=== PATIENT | male | born 1945 | race Caucasian/White ===

== ENCOUNTER 2023-10-13 14:07 | Emergency (ER) | payer MEDICARE, SELFPAY ==
[2023-10-13] VITALS (7 sets, daily range): BP systolic 129–149; BP diastolic 74–98; PULSE 84–87
--- NOTE | 2023-10-13 14:43 | ED.GENMED ---
History of Present Illness
General
Chief Complaint: Heart Rate Problem
Source: patient
Time Seen by Provider: 10/13/23 14:30
Travel History
Have you had any contact with someone who has COVID-19?: No
Do you have any symptoms of coronavirus? Fever > 100 degrees, chills, cough, shortness of breath, sore throat, loss of taste or smell, muscle aches, or headache?: No
History of Present Illness
History of Present Illness:
77-year-old male with past medical history of atrial fibrillation, hyperlipidemia, diabetes, previous prostate cancer presenting to the emergency department for evaluation of potation's and feeling as if his heartbeat has been irregular over the
last 3 days, today developed a gradual dizziness that patient described to be somewhat like vertigo however does admit to some lightheadedness associated with this. Patient states while the vertigo has seemed to improved he still feels a little bit
lightheaded. Patient notes that he has been dealing with a sinus infection and completed 2 courses of antibiotics 4 days ago, this past Friday had recently gotten off a 10-day cruise noting he was in the [place] during this time. Patient states
that upon returning home he did feel that he exerted himself a decent amount unpacking and while unpacking had to sit down twice due to some fatigue. Currently denying any fevers, cough, headache, visual changes, focal weakness or numbness or any
other concerns.
Past History
Past History
ED Past Medical History: Arrthythmia, Hypercholesterolemia, NIDDM and Other (Atrial fibrillation, hypertension, skin cancer, hyperlipidemia)
ED Past Surgical History: Cardiac (Cardiac ablation for A-fib) and Urological
Social History
Tobacco: Non-smoker
Alcohol: Former (Sober for 30 years)
Drug: None
Personal:
Living: with family
Review of Systems
Review of Systems
All Other Systems: ROS reviewed and negative except as documented in HPI and ROS
Phy Exam
Physical Exam
Physical Exam:
GENERAL: Alert , in no apparent distress, Smiling and pleasant
EYE: pupils equal and reactive , EOMI, no nystagmus, no gross visual disturbances or visual field cuts
NECK: Supple
ENT: o/p clr, mmm.TMs clear bilateral
CARDIAC: Regular rate and rhythm, Faint systolic murmur at the left second intercostal space .
LUNGS: Clear breath sounds bilaterally, no acute respiratory distress, no wheezes/rales/rhonchi
ABDOMEN: Soft, without focal tenderness, no r/g, no cvat
NEUROLOGICAL: Alert and oriented, no focal neuro deficits, Moves all extremities, no dysmetria, no ataxia, no sensory deficits, strength 5 out of 5 upper and lower extremities bilateral
SKIN: Warm and dry, skin intact.
MUSCULOSKELETAL: No edema, well perfused.
PSYCH: Normal and appropriate interaction.
Scores
Heart Failure Risk
Heart Failure Risk Score: Not Applicable
Heart Score for Chest Pain Patients
STEMI patient?: Not applicable
Withdrawal Assessment of Alcohol
Withdrawal Assessment Completed?: Not applicable
Course
Orders/Labs/Results
Orders:
Orders
10/13/23 14:19
Electrocardiogram (*1) Urgent
Reason for Study: Palpitations
EKG- Treatment ONCE
10/13/23 14:35
CMP [Comprehensive Metabolic Panel] Urgent
Complete Blood Count/With Diff Urgent
10/13/23 14:41
Orthostatic VS- Treatment ONCE
Meclizine [Antivert] 25 mg PO NOW STA
10/13/23 15:16
COVID-19 Antigen Urgent
Source: Nasal Swab
Abnormal Lab Results
10/13/23
14:35
Absolute Neuts (auto) 7.0 H 10^3/uL
(1.4-6.5)
Absolute Monos (auto) 0.9 H 10^3/uL
(0.1-0.6)
Sodium 134 L mmol/L
(135-145)
Glucose 155 H mg/dl
(70-99)
10/13/23 14:35
10/13/23 14:35
Vital Signs
Initial and Last Documented VS:
Initial Vital Signs
Temp Pulse Resp BP Pulse Ox
98.3 F 92 18 148/85 97
10/13/23 14:15 10/13/23 14:15 10/13/23 14:15 10/13/23 14:15 10/13/23 14:15
Last Documented Vital Signs
Temp Pulse Resp BP Pulse Ox
98.3 F 82 31 145/81 98
10/13/23 14:15 10/13/23 17:04 10/13/23 17:04 10/13/23 17:04 10/13/23 17:08
MDM/Problems Addressed
Differential Diagnosis Includes:
Cardiac dysrhythmia, electrolyte disturbance, vertigo secondary to recent sinus infection, vertigo secondary to recent cruise, infectious etiology
MDM/Problems Addressed:
77-year-old male present emergency department feeling as if his heartbeat were irregular over the last 3 days, today described a dizziness/lightheadedness since turned and wanted to come to the ER for this to recently completing a course of
antibiotics for sinus infection a few days ago. Is also in the [place] on a cruise for 10 days which could have potentially triggered this episode. No focal neurologic findings during my exam. Reassessment following. Will treat with a dose of
Antivert and reassess.
Chronic conditions affecting care: Arrhythmia
*Pulse Oximetry
Patient hypoxic: no
*EKG
Interpreted by ED Provider?: Yes
Comparison EKG: no changes
Heart Rate: 87
Rate: normal
Rhythm: sinus
[place]: normal axis
QRS Pattern: left bundle branch block
Ischemia: no ischemia
*Sample Processor Interpretation
Rate: normal
Rhythm: sinus, PAC's and PVC's
*Critical Care Note
Total Time (30-74mins, 75-104mins- exclusive of procedures): Not Applicable
Data Reviewed
Review of Other/Old Records Reveals: Records
Source: patient
Patient Management
Escalation/DeEscalation of care consider admission/obs:
Patient was able to ambulate multiple times with a steady gait. He does note some improvement following the Antivert. CVA as a possibility given patient's history of A-fib and that he is only on aspirin 325 mg daily however he is not showing any
acute neurologic symptoms at time of my exam. I suspect patient's symptoms are all related to recently being on a cruise as well as a recent sinus infection. I do think it is reasonable for continued outpatient management and follow-up. Patient
is aware of return precautions.
ED Attending Note
-
Portions of this chart may have been created with voice recognition software.� Occasional wrong word or��sound alike� substitutions may have occurred due to the inherent limitations of voice recognition software.
Discharge Plan
Departure
Patient Disposition: Home (Routine Discharge)
Date of Disposition: 10/13/23
Time of Disposition: 17:02
Patient with high blood pressure during this ER visit?: Yes
Discharge Problem:
Palpitations, Dizziness
Instructions: Palpitations (DC)
Prescriptions:
No Action
aspirin 325 MG tablet,delayed release (DR/EC)
325 mg PO DAILY Qty: 0 0RF
glipizide 10 mg Tablet Extended Release 24hr
10 mg PO DAILY
lisinopril 20 mg Tablet
20 mg PO DAILY
simvastatin [Zocor] 20 mg Tablet
20 mg PO HS
metformin 1,000 mg Tablet
1,000 mg PO BID
Visbiome 112.5 billion cell Capsule
1 cap PO DAILY
Trulicity 1.5 mg/0.5 mL Pen Injector
1.5 mg SC HACKETT@0800
atenolol 25 MG tablet
25 mg PO BID
Referrals:
Porrino,Gaston., DO [Family Provider] -
Interventions
Interventions:
*Risk Screen - Suicide Last Done: 10/13/23 14:29
*General Assessment Last Done: 10/13/23 14:15
*Neglect/Abuse Screening Last Done: 10/13/23 14:29
ED- Fall Risk Assessment Last Done: 10/13/23 17:08
*ED COVID-19 Vaccine History Last Done: 10/13/23 14:15
*Nursing Disposition Last Done: 10/13/23 17:08
ED- Cardiac Assessment Last Done: 10/13/23 14:46
ED- Pulmonary Assessment Last Done: 10/13/23 14:47
Discharge Date and Time
Discharge Date/Time: 10/13/23 17:09
[2023-10-13 14:58] LABS: % Basophils 0.8 % (0-2); % Eosinophils 1.7 % (0-6); % Immature Granulocytes 0.3 % (0-0.5); % Lymphocytes 20.7 % (20.5-51.1); % Monocytes 8.9 % (1.7-9.3); % Neutrophils 67.6 % (42.2-75.2); Absolute Basophils 0.1 10^3/uL (0-0.2); Absolute Eosinophils 0.2 10^3/uL (0-0.7); Absolute Lymphocytes 2.1 10^3/uL (1.2-3.4); Absolute Monocytes 0.9 10^3/uL (0.1-0.6); Hematocrit 40.7 % (39.0-52.0); Mean Corp Hgb Conc. 34.4 g/dL (33.0-37.0); Mean Corpuscular Hgb 29.3 pg (27.0-31.0); Mean Corpuscular Volume 85.1 fL (80.0-94.0); Mean Platelet Volume 9.2 fL (7.4-10.4); Nucleated Red Blood Cells % 0 % (-); Platelet Count 261 10^3/uL (130-400); Red Blood Cell Count 4.78 10^6/uL (4.70-6.10); White Blood Cell Count 10.3 10^3/uL (4.8-10.8)
[2023-10-13] MEDS: ANTIVERT 25 MG PO (15:03)
[2023-10-13 15:07] LABS: ALT (SGPT) 19 U/L (0-50); AST (SGOT) 23 U/L (17-59); Albumin 3.9 g/dl (3.5-5.0); Alkaline Phosphatase 80 U/L (38-126); Blood Urea Nitrogen 16 mg/dl (9-20); Calcium 8.8 mg/dl (8.4-10.2); Carbon Dioxide 25 mmol/L (22-30); Chloride 101 mmol/L (98-107); Glucose 155 mg/dl (70-99); Potassium 3.9 mmol/L (3.5-5.1); Sodium 134 mmol/L (135-145); Total Bilirubin 0.4 mg/dl (0.2-1.3); Total Protein 6.6 g/dl (6.3-8.2); eGFR > 60.00
[2023-10-13 15:42] LABS: COVID-19 Antigen Negative (Negative)
== END 2023-10-13 17:09 | disposition home or self-care (01) ==
LOC: EMR 14:07
PROVIDERS: Emergency Medicine; Physician Assistant Medical; EMERGENCY PHYSICIAN Emergency Medicine; FAMILY PHYSICIAN Family Medicine
DX: R00.2 Palpitations (principal); R42 Dizziness and giddiness; I49.9 Cardiac arrhythmia, unspecified; R53.83 Other fatigue; Z11.52 Encounter for screening for COVID-19
CPT/HCPCS: 99284; 80053; 85025; 87811; 93005

== ENCOUNTER 2024-04-28 15:36 | Emergency (ER) | payer MEDICARE, SELFPAY ==
[2024-04-28 15:47] VITALS: BP 134/78
[2024-04-28 16:28] VITALS: BMI 28.3
--- NOTE | 2024-04-28 16:41 | ED.GENMED ---
History of Present Illness
General
Chief Complaint: Bowel Problem
Source: patient and records (Colonoscopy report from 2020)
Exam Limitations: none
Time Seen by Provider: 04/28/24 16:23
Nursing documentation reviewed up to this point in time: agreed with
History of Present Illness
History of Present Illness:
78-year-old male presents with constipation has not had a normal bowel movement for about 8 days until today been using numerous laxatives and enemas for admit the patient he had just had a large bowel movement of solid and liquid stool on the
floor, states he is feeling better no abdominal pain no vomiting no apparent blood in the stool, no narcotic use, although he did start Trulicity he states he believes that is giving him constipation
Past History
Past History
ED Past Medical History: Arrthythmia, Hypercholesterolemia, NIDDM and Other (Atrial fibrillation, hypertension, skin cancer, hyperlipidemia)
ED Past Surgical History: Cardiac (Cardiac ablation for A-fib) and Urological
Social History
Tobacco: Non-smoker
Alcohol: Former (Sober for 30 years)
Drug: None
Personal:
Living: with family
Review of Systems
Review of Systems
All Other Systems: Not applicable
Constitutional: Denies fever
ABD/GI: Reports constipated; Denies abdominal pain
: Reports no symptoms
Musculoskeletal: Reports no symptoms
Skin: Reports no symptoms
Neurological: Reports no symptoms
Phy Exam
Physical Exam
Physical Exam:
Physical Exam
General: no apparent distress, not acutely ill
Neck: No jaundice
Heart: Regular
Lungs: no acute respiratory distress.
Abdomen: Soft nontender
Neuro: alert and oriented. no focal neurological deficits
Skin: no rash
Psychiatric: well kept. interactive and cooperative
Extremities: no edema.
Course
Vital Signs
Initial and Last Documented VS:
Initial Vital Signs
Temp Pulse BP Pulse Ox
98.1 F 63 134/78 98
04/28/24 15:47 04/28/24 15:47 04/28/24 15:47 04/28/24 15:47
Last Documented Vital Signs
Temp Pulse Resp BP Pulse Ox
98.1 F 63 18 105/62 98
04/28/24 15:47 04/28/24 15:47 04/28/24 17:44 04/28/24 17:44 04/28/24 15:47
MDM/Problems Addressed
Differential Diagnosis Includes:
Patient with a large bowel movement here after an episode of constipation C-scope from 2020 noted polyp with diverticulosis
Med effect, functional, dehydration, malignancy
MDM/Problems Addressed:
Constipation
*Pulse Oximetry
Patient hypoxic: no
*Critical Care Note
Total Time (30-74mins, 75-104mins- exclusive of procedures): Not Applicable
Update Note
Update Note:
Update patient no longer constipated may benefit from some gentle laxative
Update patient believes it is from his Trulicity
He is feeling much better after a bowel movement
ED Attending Note
-
Portions of this chart may have been created with voice recognition software.� Occasional wrong word or��sound alike� substitutions may have occurred due to the inherent limitations of voice recognition software.
Discharge Plan
Departure
Patient Disposition: Home (Routine Discharge)
Date of Disposition: 04/28/24
Time of Disposition: 17:28
Patient with high blood pressure during this ER visit?: No
Condition: Good
Covid-19: Not Applicable
Discharge Problem:
Constipation
Instructions: Constipation, Adult (DC)
Prescriptions:
New
polyethylene glycol 3350 [Miralax] 17 gram/dose powder
4 g PO DAILY PRN (Reason: Constipation) Qty: 238 0RF
lactulose 20 gram/30 mL solution
20 g PO BID PRN (Reason: Constipation) Qty: 1200 0RF
No Action
aspirin 325 MG tablet,delayed release (DR/EC)
325 mg PO DAILY Qty: 0 0RF
glipizide 10 mg Tablet Extended Release 24hr
10 mg PO DAILY
lisinopril 20 mg Tablet
20 mg PO DAILY
simvastatin [Zocor] 20 mg Tablet
20 mg PO HS
metformin 1,000 mg Tablet
1,000 mg PO BID
Visbiome 112.5 billion cell Capsule
1 cap PO DAILY
Trulicity 1.5 mg/0.5 mL Pen Injector
1.5 mg SC HACKETT@0800
atenolol 25 MG tablet
25 mg PO BID
Referrals:
Joel Sandoval MD [Active] - Next open appointment
Activity Restrictions/Additional Instructions:
Drink plenty of fluids take MiraLAX daily until your stools are soft
Follow-up with your primary care provider and gastroenterology Dr. Sandoval or his associates
Interventions
Interventions:
*Risk Screen - Suicide Last Done: 04/28/24 15:48
*General Assessment Last Done: 04/28/24 16:28
*Neglect/Abuse Screening Last Done: 04/28/24 15:48
ED- Fall Risk Assessment Last Done: 04/28/24 16:28
*ED COVID-19 Vaccine History Last Done: 04/28/24 17:46
*Nursing Disposition Last Done: 04/28/24 17:46
KT-Tvwvbk-Qcnqovgcfq Assessment Last Done: 04/28/24 16:28
Discharge Date and Time
Discharge Date/Time: 04/28/24 17:46
Print Language: NICARAGU[place]
[2024-04-28 17:44] VITALS: BP 105/62
== END 2024-04-28 17:46 | disposition home or self-care (01) ==
LOC: EMR 15:36
PROVIDERS: EMERGENCY PHYSICIAN Emergency Medicine; FAMILY PHYSICIAN Family Medicine
DX: K59.00 Constipation, unspecified (principal); E78.00 Pure hypercholesterolemia, unspecified; E11.9 Type 2 diabetes mellitus without complications; I10 Essential (primary) hypertension; I48.91 Unspecified atrial fibrillation; Z85.828 Personal history of other malignant neoplasm of skin
CPT/HCPCS: 99282

== ENCOUNTER 2024-04-30 11:33 | Inpatient (IN) | payer MEDICARE, SELFPAY ==
[2024-04-30] VITALS (13 sets, daily range): BP systolic 119–160; BP diastolic 69–101; BMI 28.8; BMI 28.0
[2024-04-30 04:48] LABS: % Basophils 0.4 % (0-2); % Eosinophils 0.1 % (0-6); % Immature Granulocytes 0.3 % (0-0.5); % Monocytes 10.4 % (1.7-9.3); % Neutrophils 81.8 % (42.2-75.2); Absolute Basophils 0.1 10^3/uL (0-0.2); Absolute Monocytes 1.5 10^3/uL (0.1-0.6); Hematocrit 41.6 % (39.0-52.0); Hemoglobin 14.6 g/dL (13.0-18.0); Mean Corp Hgb Conc. 35.1 g/dL (33.0-37.0); Mean Corpuscular Hgb 29.5 pg (27.0-31.0); Nucleated Red Blood Cells % 0 % (-); Platelet Count 252 10^3/uL (130-400); Red Blood Cell Count 4.95 10^6/uL (4.70-6.10); Red Cell Dist. Width 12.9 % (11.5-14.5); White Blood Cell Count 14.7 10^3/uL (4.8-10.8)
[2024-04-30 05:01] LABS: Lactic Acid 2.1 mmol/L (0.7-2.0)
[2024-04-30 05:02] LABS: ALT (SGPT) 20 U/L (0-50); AST (SGOT) 27 U/L (17-59); Albumin 3.7 g/dl (3.5-5.0); Alkaline Phosphatase 92 U/L (38-126); Blood Urea Nitrogen 22 mg/dl (9-20); Calcium 8.7 mg/dl (8.4-10.2); Carbon Dioxide 17 mmol/L (22-30); Chloride 97 mmol/L (98-107); Estimated Creatinine Clearance 48 ml/min; Glucose 281 mg/dl (70-99); Lipase 97 U/L (23-300); Potassium 4.4 mmol/L (3.5-5.1); Sodium 131 mmol/L (135-145); Total Bilirubin 1.2 mg/dl (0.2-1.3); Total Protein 6.4 g/dl (6.3-8.2); eGFR 50.81
[2024-04-30] MEDS: NSS 1000 IV ×3 (05:05→21:47)
--- NOTE | 2024-04-30 06:29 | ED.GENMED ---
History of Present Illness
General
Chief Complaint: Abdominal Pain
Source: patient
Exam Limitations: none
Time Seen by Provider: 04/30/24 06:24
History of Present Illness
History of Present Illness:
See MDM
Past History
Past History
ED Past Medical History: Arrthythmia, Hypercholesterolemia, NIDDM and Other (Atrial fibrillation, hypertension, skin cancer, hyperlipidemia)
ED Past Surgical History: Cardiac (Cardiac ablation for A-fib) and Urological
Social History
Tobacco: Non-smoker
Alcohol: Former (Sober for 30 years)
Drug: None
Personal:
Living: with family
Phy Exam
Physical Exam
Physical Exam:
See MDM
Course
Orders/Labs/Results
Orders:
Orders
04/30/24 04:25
Electrocardiogram (*1) Urgent
Reason for Study: Abdominal Pain
EKG- Treatment ONCE
IV Insert/Care/Rem.- Treatment PRN
04/30/24 04:34
Complete Blood Count/With Diff Urgent
Comprehensive Metabolic Panel Urgent
Lactate Level [Lactic Acid] Urgent
Lipase Urgent
04/30/24 05:03
0.9% Sodium Chloride 1000 ml [Nss] 1,000 ml IV BOLUS
04/30/24 05:39
CT Abd/Pel (IV only)-DH only Urgent
Comment:
Reason For Exam: LLQ abd. pain.
04/30/24 07:41
Zosyn 3.375 grams IVPB NOW Piperacillin/Tazo 3.375 Gram [Zosyn] 3.375 gram in 50 ml IV NOW
Abnormal Lab Results
04/30/24
04:34
WBC 14.7 H 10^3/uL
(4.8-10.8)
Absolute Neuts (auto) 12.0 H 10^3/uL
(1.4-6.5)
Absolute Lymphs (auto) 1.0 L 10^3/uL
(1.2-3.4)
Absolute Monos (auto) 1.5 H 10^3/uL
(0.1-0.6)
Neutrophils % 81.8 H %
(42.2-75.2)
Lymphocytes % 7.0 L %
(20.5-51.1)
Monocytes % 10.4 H %
(1.7-9.3)
Sodium 131 L mmol/L
(135-145)
Chloride 97 L mmol/L
(98-107)
Carbon Dioxide 17 L mmol/L
(22-30)
BUN 22 H mg/dl
(9-20)
Creatinine 1.4 H mg/dL
(0.7-1.3)
Glucose 281 H mg/dl
(70-99)
Lactic Acid 2.1 H mmol/L
(0.7-2.0)
04/30/24 04:34
04/30/24 04:34
Vital Signs
Initial and Last Documented VS:
Initial Vital Signs
Temp Pulse Resp BP Pulse Ox
98.4 F 103 19 141/81 96
04/30/24 04:08 04/30/24 04:08 04/30/24 04:08 04/30/24 04:08 04/30/24 04:08
Last Documented Vital Signs
Temp Pulse Resp BP Pulse Ox
98.4 F 108 27 140/72 95
04/30/24 04:08 04/30/24 06:00 04/30/24 06:00 04/30/24 06:07 04/30/24 05:05
MDM/Problems Addressed
Differential Diagnosis Includes:
HPI and MDM Narrative:
78-year-old male presenting with recurrent abdominal pain. He complains of left lower quadrant pain and constipation. He was seen a few days ago in the emergency department with similar symptoms. However, at that emergency visit, he had a large
bowel movement and was discharged. Patient believes it could be related to his Trulicity so he is stopped his Trulicity. He has stopped his metformin. He used to be on lactulose for constipation but he has not taken that either.
Prior to my evaluation, blood work and CT were performed. Patient appears comfortable and nontoxic. Patient found to have an elevated glucose and lactic acid. He is afebrile. Patient started on IV fluids
Physical exam
General: Well appearing and non-toxic
HEENT: protecting airway. Mildly dry mucous membranes
Neck: appears supple
CV: No evidence of cyanosis
Resp: No accessory muscle use
Abd: Non-distended. Mild tenderness left lower quadrant without rebound
Extremities: No deformities
Neuro: alert
Psych: Normal affect
Skin: Intact
Problems Addressed including Acute and Chronic Conditions affecting care:
1. Abdominal pain
Acuity: acute
Prognosis: stable
Details: Given persistent symptoms despite large bowel movement a few days ago, CT abdomen/pelvis was performed prior to my evaluation
2. Dehydration
Acuity: acute
Prognosis: stable
Details: Patient started on IV fluids
3. Hyperglycemia
Acuity: acute
Prognosis: stable
Details: No evidence of DKA. Likely in setting of medication noncompliance
Updates
Patient found to have left proximal ureteral stone in addition to colitis. The colitis is likely in the setting of the significant constant a few days ago. Given his symptoms, will give a dose of Zosyn and admit
Differential Diagnosis (but not limited to): Constipation, diverticulitis, colitis
Testing considered: blood culture
Drug therapy (if applicable): OTC meds, please see d/c instruction regarding Rx drugs
Amount and/or Complexity of Data Reviewed
Clinical info obtained from: Patient
External data reviewed: Recent evaluation for constipation. Symptoms self resolved
Labs I independently reviewed (but not limited to): Leukocytosis, elevated lactic acid, hyperglycemia
Radiology: The CT scan was personally and independently reviewed. In addition, official CT report reviewed.
Pulse Ox: not hypoxic
EKG independently reviewed: N/A
Electrical And Radio Mock Up Mechanic: N/A
Critical Care: N/A
Risk of Complication:
Social Determinants of health: Good social support
Discussed with other providers: Hospitalist
Escalation of Care includes Admit/Obs: Given the colitis and the kidney stone, will admit
Occasional wrong word or 'sound a like' substitutions may have occurred due to the inherent limitations of voice recognition software. Read the chart carefully and recognize, using context, where substitutions have occurred.
*Critical Care Note
Total Time (30-74mins, 75-104mins- exclusive of procedures): Not Applicable
ED Attending Note
-
Portions of this chart may have been created with voice recognition software.� Occasional wrong word or��sound alike� substitutions may have occurred due to the inherent limitations of voice recognition software.
Discharge Plan
Departure
Patient Disposition: Admit
Date of Disposition: 04/30/24
Time of Disposition: 07:45
Admit to: Med/Surg
Presentation/result/management discussed w/ accepting MD/DO: Hospitalist
Discharge Problem:
Colitis, Kidney stone on left side
Prescriptions:
No Action
aspirin 325 MG tablet,delayed release (DR/EC)
325 mg PO DAILY Qty: 0 0RF
glipizide 10 mg Tablet Extended Release 24hr
10 mg PO DAILY
lisinopril 20 mg Tablet
20 mg PO DAILY
simvastatin [Zocor] 20 mg Tablet
20 mg PO HS
atenolol 25 MG tablet
25 mg PO BID
polyethylene glycol 3350 [Miralax] 17 gram/dose powder
4 g PO DAILY PRN (Reason: Constipation) Qty: 238 0RF
Referrals:
Porrino,Gaston., DO [Family Provider] -
Interventions
Interventions:
*Risk Screen - Suicide Last Done: 04/30/24 04:08
*General Assessment Last Done: 04/30/24 04:08
*Neglect/Abuse Screening Last Done: 04/30/24 04:08
ED- Fall Risk Assessment Last Done: 04/30/24 04:43
*ED COVID-19 Vaccine History Last Done: 04/30/24 04:08
ZG-Tkujcd-Teudhxtjvn Assessment Last Done: 04/30/24 04:43
Discharge Date and Time
Print Language: [place]
[2024-04-30] MEDS: ZOSYN 50 IV (08:07)
[2024-04-30] MEDS: MORPHINE SULFATE 4 MG IV (08:52)
--- NOTE | 2024-04-30 10:33 | HPS.HSE ---
Addendum entered and electronically signed by Janice Magallon MD 04/30/24 12:38:
UA with 0 WBC, will stop antibiotics
Original Note:
Family Physician
-
Family Physician: Colton Caracmo
Chief Complaint
-
abdominal discomfort
History of Present Illness
Mr. Shelton Carrera is a 78 yo man with hx afib s/p ablation, HLD, NIDDM, recent ER visit 2 days ago for abdominal pain thought 2/2 constipation represents with continued pain.
Pain is left groin and radiates to back. He's been having BM. No fevers. No nausea/vomiting. No chest pain or shortness of breath. No rash. No dysuria.
Medical History
Past Medical History
Past Medical History: Reports Other (afib s/p ablation, HLD, NIDDM)
Past Surgical History: Reports Cardiac (ablation)
Social History
Tobacco: Non-smoker
Alcohol: Former
Family History
Family History: Not pertinent
Allergies / Home Medications
Allergies reflects when Allergies were last updated in [facility].
Home Medications with original date entered in [facility]
Allergy/Medication List:
Allergies
Allergy/AdvReac Type Severity Reaction Status Date / Time
scallops Allergy Unknown Uncoded 04/30/24 04:08
Home Medications
glipizide 10 mg tablet, extended release 24 hr 10 mg PO DAILY diabetes 03/21/22
lisinopril 20 mg tablet 20 mg PO DAILY blood pressure 03/21/22
simvastatin 20 mg tablet (Zocor) 20 mg PO HS hyperlipidemia 03/21/22
atenolol 25 mg tablet 25 mg PO BID Blood Pressure 10/13/23
aspirin 325 mg tablet,delayed release 325 mg PO DAILY Blood Clot Prevention/Tx 04/30/24
polyethylene glycol 3350 17 gram/dose oral powder (Miralax) 17 g PO DAILYPRN PRN constipation 04/30/24
sennosides 8.6 mg-docusate sodium 50 mg tablet (Senna Plus) 3 tab-cap PO HS constipation 04/30/24
Review of Systems
-
History Source: Patient
A 12 point ROS was completed and negative except as noted: Yes
Physical Exam
Vital Signs
Vital Signs
Temp Pulse Resp BP Pulse Ox
98.4 F 96 26 132/74 92
04/30/24 04:08 04/30/24 10:00 04/30/24 10:00 04/30/24 10:00 04/30/24 10:00
Physical Exam
General: No Apparent Distress
HEENT: PERRLA
Respiratory: Clear; No Wheezes
Cardiac: S1/S2 and Regular Rhythm
GI: Soft and Other (mild tenderness left groin )
Musculoskeletal: No Edema
Skin: Warm and Dry; No Rash
Neuro: AO x 3
Psych: Calm
Laboratory Results
-
04/30/24 04:34
04/30/24 04:34
Laboratory Results
Lactic Acid 2.1 mmol/L (0.7-2.0) H 04/30/24 04:34
Total Bilirubin 1.2 mg/dl (0.2-1.3) 04/30/24 04:34
AST 27 U/L (17-59) 04/30/24 04:34
ALT 20 U/L (0-50) 04/30/24 04:34
Alkaline Phosphatase 92 U/L (38-126) 04/30/24 04:34
Lipase 97 U/L (23-300) 04/30/24 04:34
Data Reviewed
-
Diagnostic Radiology: Report Reviewed by me
Lab Data: Labs Reviewed by me
Impression/Plan
-
Mr. Shelton Carrera is a 78 yo man with hx afib s/p ablation, HLD, NIDDM, recent ER visit 2 days ago for abdominal pain thought 2/2 constipation represents with continued pain found to have left nephrolithiasis with mild hydro.
Triage VS: T 98.4, P 103, RR 19, BP 141/81, SpO2 96%
LABS: WBC 14.7, Hg 14.6, PLT 252, Na 131, K+ 4.4, BUN 22, Cr 1.4, lactate 2.1, liver enzymes WNL
CT A/P
IMPRESSION:
1. 8 mm stone at the left ureteral pelvic junction, associated with mild right hydronephrosis. There is delayed cortical function of the left kidney relative to the right. Additional intrarenal stone on the left side, nonobstructing.
2. Colonic diverticulosis without evidence of diverticulitis.
Kidneys/Ureters: Perinephric stranding is seen surrounding the left kidney. There is delayed cortical enhancement of the left kidney, indicative of delayed left renal function.
There is mild hydronephrosis left kidney. A stone is seen at the left ureteral pelvic junction, measuring 8 mm in diameter.
Left ureteral stone with mild hydronephrosis
RAMON
-admit to med/surg
-Urology consulted
-NPO for now
-IVF
-continue IV Zosyn for now, awaiting UA
-hold ASSOCIATE PROFESSOR OF ART HISTORY Lisinopril
HTN
-decrease atenolol to daily with RAMON
-hold Lisinopril
Elevated lactate in setting of possible UTI, renal stone
-patient not septic
-s/p 1L bolus, continue to trend
-IVF
HLD
-ASSOCIATE PROFESSOR OF ART HISTORY Statin
NIDDM
-hold ASSOCIATE PROFESSOR OF ART HISTORY Glipziide
-ISS low
DVT PPx SCD
DNR - discussed on admission
76 minutes spent on patient care
[2024-04-30 11:28] LABS: Urine Albumin Trace (Neg - Trace); Urine Bilirubin Negative (Negative); Urine Character Clear (Clear); Urine Color Yellow; Urine Glucose 3+ (Negative); Urine Ketone 2+ (Negative); Urine Leukocyte Negative (Negative); Urine Nitrite Negative (Negative); Urine Occult Blood 2+ (Negative); Urine Urobilinogen Negative (Neg - 1+)
[2024-04-30 11:52] LABS: Urine Bacteria Few (Negative); Urine Squamous Cell 0-2 /LPF (Few); Urine White Cell 0-2 /HPF (0-5)
[2024-04-30] MEDS: FLOMAX 0.4 MG PO (12:00)
[2024-04-30 12:53] LABS: Glycohemoglobin (HgbA1c) 8.2 % (4.0-5.6)
[2024-04-30] MEDS: NOVOLOG FLEXPEN-LOW RESISTANCE SC (13:31)
--- NOTE | 2024-04-30 13:51 | PTCARENOTE ---
Received pt from ER via stretcher, accompanied by ER staff. Pt AAO x3, ASHLEY well, ambulatory to bed, no c/o weakness/dizziness. VSS. On room air- pulse ox 99%, no SOB noted. Abd soft, rounded, to start reg diet. Pt voided in BR upon arrival to
unit; aware of need to monitor output/strain urine. Afebrile; W/D/I. IVF's NSS @ 125 ml/hr infusing via Lt AC site without sx of infiltration. Currently resting in bed. Will continue to monitor.
[2024-04-30 14:25] LABS: Lactic Acid 1.5 mmol/L (0.7-2.0)
[2024-04-30] MEDS: TENORMIN 25 MG PO (16:04)
[2024-04-30] MEDS: TYLENOL 650 MG PO (16:08)
--- NOTE | 2024-04-30 16:09 | PTCARENOTE ---
Pt resting comfortably since arrival on unit. Temp currently 100.7 PO; Tylenol 650 mg PO given; will continue to monitor.
[2024-04-30 18:10] LABS: Glucose - Point of Care 311 mg/dl (70-99)
[2024-04-30] MEDS: NOVOLOG FLEXPEN-LOW RESISTANCE 4 UNITS SC (18:13)
[2024-04-30] MEDS: LIPITOR 10 MG PO (21:11)
--- NOTE | 2024-04-30 21:49 | PTCARENOTE ---
Pt has been bradycardic w/ 1st degree block as low in the 30's. Pt is asymptomatic. PATTERNMAKER PLASTER certifed refrigeration operator made aware. Will continue w/ tx plan
[2024-05-01 00:11] LABS: Glucose - Point of Care 222 mg/dl (70-99)
[2024-05-01] MEDS: NOVOLOG FLEXPEN-LOW RESISTANCE 2 UNITS SC (00:12)
[2024-05-01] MEDS: NSS 1000 IV ×2 (05:12→14:41)
[2024-05-01] MEDS: NOVOLOG FLEXPEN-LOW RESISTANCE 1 UNITS SC ×3 (05:16→16:31)
[2024-05-01 05:17] LABS: Glucose - Point of Care 193 mg/dl (70-99)
[2024-05-01 05:42] LABS: % Basophils 0.6 % (0-2); % Eosinophils 1.6 % (0-6); % Immature Granulocytes 0.3 % (0-0.5); % Lymphocytes 12.1 % (20.5-51.1); % Neutrophils 74.4 % (42.2-75.2); Absolute Basophils 0.1 10^3/uL (0-0.2); Absolute Eosinophils 0.2 10^3/uL (0-0.7); Absolute Lymphocytes 1.4 10^3/uL (1.2-3.4); Absolute Monocytes 1.3 10^3/uL (0.1-0.6); Absolute Neutrophils 8.8 10^3/uL (1.4-6.5); Hematocrit 37.6 % (39.0-52.0); Hemoglobin 12.9 g/dL (13.0-18.0); Mean Corp Hgb Conc. 34.3 g/dL (33.0-37.0); Mean Corpuscular Hgb 29.5 pg (27.0-31.0); Mean Platelet Volume 9.5 fL (7.4-10.4); Nucleated Red Blood Cells % 0 % (-); Platelet Count 222 10^3/uL (130-400); Red Blood Cell Count 4.37 10^6/uL (4.70-6.10); Red Cell Dist. Width 12.8 % (11.5-14.5); White Blood Cell Count 11.9 10^3/uL (4.8-10.8)
[2024-05-01 05:57] LABS: Blood Urea Nitrogen 22 mg/dl (9-20); Carbon Dioxide 21 mmol/L (22-30); Chloride 101 mmol/L (98-107); Estimated Creatinine Clearance 46 ml/min; Glucose 194 mg/dl (70-99); Magnesium 1.9 mg/dl (1.6-2.3); Potassium 4.1 mmol/L (3.5-5.1); Sodium 134 mmol/L (135-145); eGFR 46.77
[2024-05-01 07:55] VITALS: BP 149/86
[2024-05-01] MEDS: FLOMAX 0.4 MG PO (08:09)
[2024-05-01] MEDS: TENORMIN 25 MG PO ×2 (08:10→21:03)
[2024-05-01] MEDS: FLUSH (NSS) 1 FLUSH IV (08:17)
[2024-05-01] MEDS: DILAUDID 0.5 MG IV (08:17)
--- NOTE | 2024-05-01 10:32 | W.PN.URO.CBU ---
Today's Communication / Plan
-
Discussed case with Hospitalist
Home today after a KUB for a trial of stone passage
Advise tamsulosin and a cephalosporin
Assessment / Plan
-
Partially obstructing 8 mm left proximal ureteral stone
RAMON: creatinine 1.5 today (baseline around 1.2)
Bilateral renal cysts
Diagnosis
-
Date of Service: May 01, 2024
-
Patient Diagnosis:
Partially obstructing 8mm left proximal ureteral stone
Bilateral renal cysts
RAMON
Left renal colic
---
No voiding dysfunction
No gross hematuria
No fever or chills
No nausea or vomiting
No prior history of nephrolithiasis
Subjective
-
Patient is essentially pain-free at this time
He is voiding w/o difficulty
Hungry
Objective
-
Vital Signs
Temp Pulse Resp BP Pulse Ox
97.4 F 90 14 149/86 95
05/01/24 07:55 05/01/24 08:10 05/01/24 07:55 05/01/24 08:10 05/01/24 07:55
Intake and Output
04/30/24 05/01/24 05/02/24
06:59 06:59 06:59
Intake Total 2900 / 2900
Output Total 850 / 850
Balance 2049 / 2049
Intake:
Oral fluids 900 / 900
IV fluids (Total) 1999 / 1999
Output:
Urine, Voided 850 / 850
Other:
Number of approximated MODERATE 2
amounts of urine
Laboratory Results
05/01/24 05:16
05/01/24 05:16
Urinalysis yesterday is not suggestive of active UTI
CT scan results personally reviewed
Review of Systems
-
Constitutional: No Symptoms
Respiratory: No Symptoms
Cardiac: No Symptoms
Abdomen/GI: Abdominal Pain
: No Symptoms
Neurological: No Symptoms
Physical Exam
-
General - well developed, well nourished, no acute distress
Abdomen - soft, non-tender, mild left CVAT
Skin - warm & dry with no rash
Neuro - AOx3, no motor deficits
Counseling
-
Cleared for discharge from a standpoint
Will follow up as an outpatient
[2024-05-01 10:36] LABS: Glucose - Point of Care 194 mg/dl (70-99)
--- NOTE | 2024-05-01 11:08 | W.PN.HOSP.TC ---
Today's Communication/Plan
-
see plan
Assessment / Plan
Assessment / Plan
Mr. Shelton Carrera is a 78 yo man with hx afib s/p ablation, HLD, NIDDM, recent ER visit 2 days ago for abdominal pain thought 2/2 constipation represents with continued pain found to have left nephrolithiasis with mild hydro.
CT A/P
IMPRESSION:
1. 8 mm stone at the left ureteral pelvic junction, associated with mild right hydronephrosis. There is delayed cortical function of the left kidney relative to the right. Additional intrarenal stone on the left side, nonobstructing.
2. Colonic diverticulosis without evidence of diverticulitis.
Kidneys/Ureters: Perinephric stranding is seen surrounding the left kidney. There is delayed cortical enhancement of the left kidney, indicative of delayed left renal function.
There is mild hydronephrosis left kidney. A stone is seen at the left ureteral pelvic junction, measuring 8 mm in diameter.
Left ureteral stone with mild hydronephrosis
RAMON
-admit to med/surg
-Urology consult appreciated
-OK for DC from Urologic perspective with close follow up
-patient cannot obtain meds until tomorrow with [facility] - will keep another night
-oral Keflex per Urology recs
-NS @ 78
HTN
-decrease atenolol to daily with RAMON
-hold Lisinopril
Elevated lactate in setting of possible UTI, renal stone
-resolved
-patient not septic
HLD
-CREDIT CONTROL ADMINISTRATOR Statin
NIDDM
-resume lower dose Glipizide
-ISS low
DVT PPx SCD
DNR - discussed on admission
51 minutes spent on patient care
Anticipated Discharge: 24 - 48 hours
Subjective/Interval History
-
Date of Service: May 01, 2024
pain improved although received IV dilaudid this morning
Objective Data
-
Labs:
Laboratory Results
05/01/24
05:16
WBC 11.9 H
Hgb 12.9 L
Hct 37.6 L
Plt Count 222
Sodium 134 L
Potassium 4.1
Chloride 101
Carbon Dioxide 21 L
BUN 22 H
Creatinine 1.5 H
Glucose 194 H
Calcium 8.0 L
Vital Signs:
Vital Signs
Temp Pulse Resp BP Pulse Ox
97.4 F 90 14 149/86 96
05/01/24 07:55 05/01/24 08:10 05/01/24 07:55 05/01/24 08:10 05/01/24 10:00
I&O
04/30/24 05/01/24 05/02/24
06:59 06:59 06:59
Intake Total 2900 / 2900
Output Total 850 / 850
Balance 2049 / 2049
Review of Systems
-
History Source: Patient
All other systems: Reviewed and negative
Physical Exam
-
General: No Apparent Distress
HEENT: PERRLA
Respiratory: Clear to Auscultation; Negative Wheezes
Cardiac: Regular Rhythm and S1/S2
GI: Soft and Nontender
Musculoskeletal: No Edema
Skin: Warm and Dry; Negative Rash
Neuro: AO x 3
Psych: Calm
Data Reviewed
-
Diagnostic Radiology: Report Reviewed by me
Labs: Labs Reviewed by me
[2024-05-01] MEDS: MIRALAX 17 GRAMS PO (11:29)
[2024-05-01] MEDS: LOW STRENGTH ASPIRIN 81 MG PO (11:29)
[2024-05-01] MEDS: KEFLEX 500 MG PO ×2 (11:29→21:03)
[2024-05-01] MEDS: GLUCOTROL 2.5 MG PO (11:34)
[2024-05-01 11:46] LABS: Glucose - Point of Care 255 mg/dl (70-99)
--- NOTE | 2024-05-01 12:55 | PTOTSP ---
Chart reviewed. patient received in bed. PT introduced and explained roll. Patient notes that he has been walking to/from stretchers without issue or AD (EMR confirms that he and he has no stairs at home (all elevator access). At this time,
patient notes that he doesn't have any concerns about going home and other than constipation and pain from the stone. Encouraged patient to continue to mobilize as much as he can to maintain a normal routine. If condition changes, explained to
patient to let staff know to have PT reconsulted. Will sign off per patient request.
--- NOTE | 2024-05-01 14:31 | CM ---
Met with patient who reports he lives alone in apartment. He uses cane and has shower rails. His dgtr lives in [place].
PCP Dr. Carcamo
PHarmacy: [facility].
He hopes to go home soon and does not expect to need any home care services.
PLAN:home no needs
[2024-05-01 15:50] VITALS: BP 100/53
[2024-05-01 16:28] LABS: Glucose - Point of Care 152 mg/dl (70-99)
[2024-05-01] MEDS: PERCOCET 5/325 1 TABLET PO (21:03)
[2024-05-01] MEDS: LIPITOR 10 MG PO (21:04)
[2024-05-01 21:24] LABS: Glucose - Point of Care 193 mg/dl (70-99)
[2024-05-01 23:51] VITALS: BP 116/76
[2024-05-02] MEDS: NSS 1000 IV (02:17)
[2024-05-02 07:19] LABS: Glucose - Point of Care 172 mg/dl (70-99)
[2024-05-02 07:50] VITALS: BP 152/90
[2024-05-02 07:56] LABS: Hematocrit 38.1 % (39.0-52.0); Mean Corp Hgb Conc. 34.1 g/dL (33.0-37.0); Mean Corpuscular Hgb 28.6 pg (27.0-31.0); Mean Corpuscular Volume 83.7 fL (80.0-94.0); Mean Platelet Volume 9.6 fL (7.4-10.4); Platelet Count 235 10^3/uL (130-400); Red Blood Cell Count 4.55 10^6/uL (4.70-6.10); Red Cell Dist. Width 12.9 % (11.5-14.5); White Blood Cell Count 10.5 10^3/uL (4.8-10.8)
[2024-05-02] MEDS: TENORMIN 25 MG PO (08:04)
[2024-05-02] MEDS: GLUCOTROL 2.5 MG PO (08:04)
[2024-05-02] MEDS: FLOMAX 0.4 MG PO (08:04)
[2024-05-02] MEDS: LOW STRENGTH ASPIRIN 81 MG PO (08:04)
[2024-05-02] MEDS: NOVOLOG FLEXPEN-LOW RESISTANCE 1 UNITS SC (08:05)
[2024-05-02] MEDS: KEFLEX 500 MG PO (08:05)
[2024-05-02 08:34] LABS: Blood Urea Nitrogen 19 mg/dl (9-20); Calcium 7.9 mg/dl (8.4-10.2); Carbon Dioxide 19 mmol/L (22-30); Chloride 101 mmol/L (98-107); Estimated Creatinine Clearance 49 ml/min; Glucose 179 mg/dl (70-99); Magnesium 1.9 mg/dl (1.6-2.3); Potassium 4.1 mmol/L (3.5-5.1); Sodium 133 mmol/L (135-145); eGFR 50.81
[2024-05-02 08:45] VITALS: BP 152/90
--- NOTE | 2024-05-02 10:16 | W.PN.URO.CBU ---
Today's Communication / Plan
-
Home today or outpatient trial of stone passage
Assessment / Plan
-
Partially obstructing 8 mm left proximal ureteral stone
RAMON: creatinine 1.4 today (baseline around 1.2)
Bilateral renal cysts
Diagnosis
-
Date of Service: May 02, 2024
-
Patient Diagnosis:
Partially obstructing 8mm left proximal ureteral stone
Bilateral renal cysts
RAMON
Left renal colic
---
No voiding dysfunction
No gross hematuria
No fever or chills
No nausea or vomiting
No prior history of nephrolithiasis
Subjective
-
Patient comfortable
Voiding
No nausea
Objective
-
Vital Signs
Temp Pulse Resp BP Pulse Ox
98.7 F 98 16 151/86 95
05/02/24 07:50 05/02/24 08:04 05/02/24 07:50 05/02/24 08:04 05/02/24 10:00
Intake and Output
05/01/24 05/02/24 05/03/24
06:59 06:59 06:59
Intake Total 2900 / 2900 1620 / 1620
Output Total 850 / 850 1675 / 1675
Balance 2049 / 2049 -55 / -55
Intake:
Oral fluids 900 / 900 660 / 660
IV fluids (Total) 1999 / 1999 960 / 960
Output:
Urine, Voided 850 / 850 1675 / 1675
Other:
Number of approximated MODERATE 2
amounts of urine
Laboratory Results
05/02/24 07:12
05/02/24 07:12
Review of Systems
-
Constitutional: No Symptoms
Respiratory: No Symptoms
Cardiac: No Symptoms
Abdomen/GI: No Symptoms
: No Symptoms
Physical Exam
-
General - well developed, well nourished, no acute distress
Abdomen - soft, non-tender
Skin - warm & dry with no rash
Counseling
-
Discussed with Hospitalist
Home today
--- NOTE | 2024-05-02 10:32 | W.PN.HOSP.TC ---
Today's Communication/Plan
-
OK for DC today
Assessment / Plan
Assessment / Plan
Mr. Shelton Carrera is a 78 yo man with hx afib s/p ablation, HLD, NIDDM, recent ER visit 2 days ago for abdominal pain thought 2/2 constipation represents with continued pain found to have left nephrolithiasis with mild hydro.
CT A/P
IMPRESSION:
1. 8 mm stone at the left ureteral pelvic junction, associated with mild right hydronephrosis. There is delayed cortical function of the left kidney relative to the right. Additional intrarenal stone on the left side, nonobstructing.
2. Colonic diverticulosis without evidence of diverticulitis.
Kidneys/Ureters: Perinephric stranding is seen surrounding the left kidney. There is delayed cortical enhancement of the left kidney, indicative of delayed left renal function.
There is mild hydronephrosis left kidney. A stone is seen at the left ureteral pelvic junction, measuring 8 mm in diameter.
Left ureteral stone with mild hydronephrosis
RAMON
-Urology consult appreciated
-OK for DC from Urologic perspective with close follow up
-[facility] today
-oral Keflex per Urology recs
-stop fluids
-OK for discharge today
-obtain labs - to be ordered by PCP
HTN
-OK to continue home medications - resume lisinopril tomorrow
Elevated lactate in setting of possible UTI, renal stone
-resolved
-patient not septic
HLD
-CASHIER CREDIT Statin
NIDDM
-resume lower dose Glipizide
-ISS low
DVT PPx SCD
DNR - discussed on admission
51 minutes spent on patient care
Anticipated Discharge: Today
Subjective/Interval History
-
Date of Service: May 02, 2024
feeling well and wants to go home today
minimal pain, had one percocet earlier
Objective Data
-
Labs:
Laboratory Results
05/02/24
07:12
WBC 10.5
Hgb 13.0
Hct 38.1 L
Plt Count 235
Sodium 133 L
Potassium 4.1
Chloride 101
Carbon Dioxide 19 L
BUN 19
Creatinine 1.4 H
Glucose 179 H
Calcium 7.9 L
Vital Signs:
Vital Signs
Temp Pulse Resp BP Pulse Ox
98.7 F 98 16 151/86 95
05/02/24 07:50 05/02/24 08:04 05/02/24 07:50 05/02/24 08:04 05/02/24 10:00
I&O
05/01/24 05/02/24 05/03/24
06:59 06:59 06:59
Intake Total 2900 / 2900 1620 / 1620
Output Total 850 / 850 1675 / 1675
Balance 2049 / 2049 -55 / -55
Review of Systems
-
History Source: Patient
All other systems: Reviewed and negative
Physical Exam
-
General: No Apparent Distress
HEENT: PERRLA
Respiratory: Clear to Auscultation; Negative Wheezes
Cardiac: Regular Rhythm and S1/S2
GI: Soft and Nontender
Musculoskeletal: No Edema
Skin: Warm and Dry; Negative Rash
Neuro: AO x 3
Psych: Calm
Data Reviewed
-
Diagnostic Radiology: Report Reviewed by me
Labs: Labs Reviewed by me
--- NOTE | 2024-05-02 10:46 | W.DS.TRANS ---
DC Summary - [employer]
-
Discharge Instructions:
Discharge Diagnosis/Procedures nephrolithiasis
Diet Diabetic, Carb Controlled
Activity As tolerated
Driving Restrictions As prior to admission
Bathing Restrictions None
Blood Work BMP in 2-4 days - to be followed by your PCP
Instructions:
Stand-Alone Forms:
Changes to Home Medications: Yes
Discharge Medications:
DC Medications w/original date entered in food.de
lisinopril 20 mg tablet 20 mg PO DAILY blood pressure 03/21/22
simvastatin 20 mg tablet (Zocor) 20 mg PO HS hyperlipidemia 03/21/22
atenolol 25 mg tablet 25 mg PO BID Blood Pressure 10/13/23
aspirin 325 mg tablet,delayed release 325 mg PO DAILY Blood Clot Prevention/Tx 04/30/24
polyethylene glycol 3350 17 gram/dose oral powder (Miralax) 17 g PO DAILYPRN PRN constipation 04/30/24
sennosides 8.6 mg-docusate sodium 50 mg tablet (Senna Plus) 3 tab-cap PO HS constipation 04/30/24
cephalexin 500 mg capsule 500 mg PO BID #10 caps 05/01/24
oxycodone-acetaminophen 5 mg-325 mg tablet 1 tab PO Q4HPRN PRN severe pain #10 tabs 05/01/24
tamsulosin 0.4 mg capsule 0.4 mg PO DAILY #30 caps 05/01/24
glipizide 10 mg tablet, extended release 24 hr 10 mg PO DAILY diabetes #0 tabs 05/02/24
Home Medication Changes
addition of flomax, percocet, keflex course
Pending Results: No
[2024-05-02] MEDS: PREVNAR 20 0.5 ML IM (11:30)
[2024-05-02] MEDS: NOVOLOG FLEXPEN-LOW RESISTANCE SC (11:36)
[2024-05-02 11:45] VITALS: BP 157/90
--- NOTE | 2024-05-02 12:01 | CM ---
Patient seen at bedside. Patient IMM completed and signed form placed on chart. Patient states that he will call [facility] when he is ready for discharge. Patient with no needs at this time.
Plan; home with no needs anticipated
--- NOTE | 2024-05-02 14:16 | W.DCSUMMARY ---
Discharge Summary
Discharge Data
Date of Admission: 04/30/24
Date of Discharge: 05/02/24
-
Pending Results: No
Hospital Course
Discharging Physician : Dr. Janice Magallon
Disposition : Home
Primary care physician : Dr. Colton Carcamo
Principal Discharge diagnosis : Nephrolithiasis
Hospital Course :
Mr. Shelton Carrera is a 78 yo man with hx afib s/p ablation, HLD, NIDDM, recent ER visit 2 days ago for abdominal pain thought 2/2 constipation represents with continued pain more localized to left groin. Triage vitals stable. Labs with WBC 14.7,
lactate 2.1. CT A/P with an 8mm partially obstructing stone left ureteral pelvic junction. He was admitted to medicine with Urology consulting. Pain much improved on day of discharge, plan is for outpatient trial of stone passage. Creatinine
stabilized at 1.4, leukocytosis resolved. He is discharged on Keflex per Urology recommendations and will follow up closely as outpatient.
Repeat labs to monitor kidney function to be obtained in 2-4 days.
A1c 8.2%, no changes made to home Glipizide with stable creatinine.
Time spent on discharge was 35 minutes.
Important imaging findings :
CT A/P 04/30/24
IMPRESSION:
1. 8 mm stone at the left ureteral pelvic junction, associated with mild right hydronephrosis. There is delayed cortical function of the left kidney relative to the right. Additional intrarenal stone on the left side, nonobstructing.
2. Colonic diverticulosis without evidence of diverticulitis.
Kidneys/Ureters: Perinephric stranding is seen surrounding the left kidney. There is delayed cortical enhancement of the left kidney, indicative of delayed left renal function.
There is mild hydronephrosis left kidney. A stone is seen at the left ureteral pelvic junction, measuring 8 mm in diameter.
Procedure findings :
Discharge Plan
-
Patient Disposition: Home (Routine Discharge)
Discharge Diagnosis/Procedures: nephrolithiasis
Diet: Diabetic, Carb Controlled
Activity: As tolerated
Driving Restrictions: As prior to admission
Bathing Restrictions: None
Blood Work: BMP in 2-4 days - to be followed by your PCP
Referrals:
Colton Carcamo DO [Family Provider] - in less than 1 week
Gonsalo Hodge MD [Active] - in one to two weeks
Additional Discharge Medication Instructions: Return to ER if worsening pain or fever/chills
OK to resume Lisinopril tomorrow
Take Flomax daily until stone passes.
You are prescribed Percocet as needed for pain - take sparingly; only if necessary for pain from stone passage.
Complete antibiotic course as prescribed.
Prescriptions:
New
oxycodone-acetaminophen 5-325 mg Tablet
1 tab PO Q4HPRN PRN (Reason: severe pain) Qty: 10 0RF
tamsulosin 0.4 mg Capsule
0.4 mg PO DAILY Qty: 30 0RF
cephalexin 500 mg Capsule
500 mg PO BID Qty: 10 0RF
Continued
lisinopril 20 mg Tablet
20 mg PO DAILY
simvastatin [Zocor] 20 mg Tablet
20 mg PO HS
atenolol 25 MG tablet
25 mg PO BID
sennosides-docusate sodium [Senna Plus] 8.6-50 mg Tablet
3 tab-cap PO HS
polyethylene glycol 3350 [Miralax] 17 gram/dose powder
17 g PO DAILYPRN PRN (Reason: constipation )
aspirin 325 MG tablet,delayed release (DR/EC)
325 mg PO DAILY
glipizide 10 mg Tablet Extended Release 24hr
10 mg PO DAILY Qty: 0 0RF
Discharge Orders:
Discharge Patient (As Directed); Ordered 05/02/24
Ordered By: Janice Magallon
Discharge Date and Time
Discharge Date/Time: 05/02/24 12:13
Print Language: BENGALI
== END 2024-05-02 12:13 | disposition home or self-care (01) | DRG 694 ==
LOC: 4 EAST ACU 11:33
PROVIDERS: Student in an Organized Health Care Education/Training Program; ADMITTING PHYSICIAN Student in an Organized Health Care Education/Training Program; CONSULT PHYSICIAN Specialist; EMERGENCY PHYSICIAN Student in an Organized Health Care Education/Training Program; FAMILY PHYSICIAN Family Medicine
DX: N13.2 Hydronephrosis with renal and ureteral calculous obstruction (principal); E87.20 Acidosis, unspecified; E11.65 Type 2 diabetes mellitus with hyperglycemia; I10 Essential (primary) hypertension; N17.9 Acute kidney failure, unspecified; E86.0 Dehydration; N28.1 Cyst of kidney, acquired; I48.91 Unspecified atrial fibrillation; E78.00 Pure hypercholesterolemia, unspecified; Z66 Do not resuscitate; K52.9 Noninfective gastroenteritis and colitis, unspecified; K57.30 Diverticulosis of large intestine without perforation or abscess without bleeding; K59.00 Constipation, unspecified; Z79.82 Long term (current) use of aspirin; Z79.84 Long term (current) use of oral hypoglycemic drugs; Z79.899 Other long term (current) drug therapy; Z85.828 Personal history of other malignant neoplasm of skin
CPT/HCPCS: 74018; 74177; 80048; 80053; 81003; 81015; 82962; 83036; 83605; 83690; 83735; 85025; 85027; 90677; 93005; 96361; 96365; 96375; 99285; G0009; Q9967

== ENCOUNTER → 2024-05-21 11:46 | Outpatient (REF) | payer MEDICARE, SELFPAY | LOC: RAD 11:46 | PROVIDERS: ATTENDING PHYSICIAN Specialist; FAMILY PHYSICIAN Family Medicine | DX: N20.1 Calculus of ureter (principal) | CPT/HCPCS: 74018 ==

== ENCOUNTER → 2024-05-28 08:28 | Outpatient (REF) | payer MEDICARE, SELFPAY | LOC: RAD 08:28 | PROVIDERS: ATTENDING PHYSICIAN Specialist; FAMILY PHYSICIAN Family Medicine | DX: N20.1 Calculus of ureter (principal) | CPT/HCPCS: 74176 ==

== ENCOUNTER → 2024-06-24 06:31 | Day surgery (SDC) | payer MEDICARE, SELFPAY | LOC: SDS 06:31 | PROVIDERS: ATTENDING PHYSICIAN Specialist | DX: N20.1 Calculus of ureter (principal); Z53.9 Procedure and treatment not carried out, unspecified reason ==

== ENCOUNTER → 2024-07-05 10:24 | Outpatient (REF) | payer MEDICARE, SELFPAY | LOC: CLAB 10:24 | PROVIDERS: ATTENDING PHYSICIAN Specialist | DX: N20.0 Calculus of kidney (principal) | CPT/HCPCS: 82365 ==

== ENCOUNTER → 2024-07-07 13:51 | Outpatient (REF) | payer MEDICARE, SELFPAY | LOC: RCS 13:51 | PROVIDERS: ATTENDING PHYSICIAN Internal Medicine Cardiovascular Disease; FAMILY PHYSICIAN Family Medicine | DX: I48.0 Paroxysmal atrial fibrillation (principal); I44.7 Left bundle-branch block, unspecified | CPT/HCPCS: 93306 ==

== ENCOUNTER → 2024-11-30 10:00 | Outpatient (REF) | payer MEDICARE, SELFPAY | LOC: WDC 10:00 | PROVIDERS: ATTENDING PHYSICIAN Family Medicine | DX: N64.59 Other signs and symptoms in breast (principal) | CPT/HCPCS: 76642; 77062; 77066 ==